=== PATIENT | female | born 1975 | race Caucasian/White ===

== ENCOUNTER 2017-02-08 14:53 | Observation (INO) | payer OTHER ==
[~2017-02-08] VITALS: Ht 170.2 cm; Wt 63.6 kg
[2017-02-08 15:08] VITALS: BP 95/75; PULSE 75; RESP 16; TEMP 98.3; O2SAT 99
[2017-02-08] MEDS ORDERED: GERD MED (15:15)
[2017-02-08 15:23] VITALS: O2SAT 100
[2017-02-08] MEDS ORDERED: SODIUM CHLORIDE 0.9% FLUSH 10 ML FLUSH IVF PRN (15:30)
--- NOTE | 2017-02-08 15:31 | PD ---
HPI Chief Complaint: Chest Pain Time Seen by Provider: 15:06 Travel History International Travel<30 days: No Contact w/Intl Traveler<30days: No Traveled to known affect area: No History of Present Illness HPI 41-year-old female presents with an episode 5 days ago chest pain that lasted a couple hours and went away but then recurred again today at about noon so she elected to come in after taking 4 baby aspirin. She states she also had a discomfort that went into her left arm. She states multiple males on her father 's side of the family including her father has had heart attacks. She states she has a history of SVT but denies any other cardiac history. 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 She denies other associated symptoms. Quality is achy. Location is chest. Severity is moderate. She denies specific modifying factors. She has had 2 episodes total over 5 days PFSH Past Medical History GERD: Yes Medical other: Yes (H/O SVT) Tetanus Vaccination: < 5 Years Influenza Vaccination: No ?: Not Past Surgical History Other Surgery: Yes (BREAST AUGMENTATION) Family History Family Myocardial Infarction: Yes Family Hypercholesterolemia: Yes Social History Alcohol Use: Yes (~2 X WEEKLY) Tobacco Use: No Substance Use: No Allergies-Medications (Allergen,Severity, Reaction): Coded Allergies: amoxicillin (Verified Allergy, Severe, Nausea/Vomiting, 02/08/17) clavulanic acid (Verified Allergy, Severe, Nausea/Vomiting, 02/08/17) levofloxacin (Verified Allergy, Severe, NIGHT TERRORS, 02/08/17) Reported Meds & Prescriptions Reported Meds & Active Scripts Active Reported [Gerd Med] Review of Systems Except as stated in HPI: all other systems reviewed are Neg Physical Exam Narrative GENERAL: Well-nourished, well-developed patient. Well-appearing SKIN: Warm and dry. HEAD: Normocephalic and atraumatic. EYES: No injection or drainage. ENT: No nasal drainage noted. NECK: Supple, trachea midline. CARDIOVASCULAR: Regular rate and rhythm RESPIRATORY: Breath sounds equal bilaterally. No accessory muscle use. GASTROINTESTINAL: Abdomen soft, non-tender, nondistended. EXTREMITIES: No edema. NEUROLOGICAL: Awake and alert. Motor and sensory grossly within normal limits. Normal speech. Data Data Last Documented VS Vital Signs Date Time Temp Pulse Resp B/P (MAP) Pulse Ox O2 Delivery O2 Flow Rate FiO2 02/08/17 15:23 100 Room Air 02/08/17 15:08 98.3 75 16 Orders Orders Electrocardiogram (02/08/17 15:19) Ckmb (Isoenzyme) Profile (02/08/17 15:19) Complete Blood Count With Diff (02/08/17 15:19) Comprehensive Metabolic Panel (02/08/17 15:19) Magnesium (Mg) (02/08/17 15:19) Prothrombin Time / Inr (Pt) (02/08/17 15:19) Act Partial Throm Time (Ptt) (02/08/17 15:19) Troponin I (02/08/17 15:19) Lipase (02/08/17 15:19) Chest, Single Ap (02/08/17 15:19) Ecg Monitoring (02/08/17 15:19) Bilateral Bp Monitoring (02/08/17 15:19) Iv Access Insert/Monitor (02/08/17 15:19) Oximetry (02/08/17 15:19) Oxygen Administration (02/08/17 15:19) Sodium Chloride 0.9% Flush (Ns Flush) (02/08/17 15:30) Admit Order (Ed Use Only) (02/08/17 17:15) Place In Observation (02/08/17 ) Vital Signs (Adult) Q4H (02/08/17 17:13) Activity Oob With Assistance (02/08/17 17:13) Camera Storage Clerk / Telemetry .CONTINUOUS (02/08/17 17:13) Diet Heart Healthy (02/08/17 Dinner) Sodium Chloride 0.9% Flush (Ns Flush) (02/08/17 17:15) Sodium Chloride 0.9% Flush (Ns Flush) (02/08/17 21:00) Acetaminophen (Tylenol) (02/08/17 17:15) Ondansetron Inj (Zofran Inj) (02/08/17 17:15) Troponin I (02/08/17 19:00) Troponin I (02/09/17 01:00) Electrocardiogram (02/08/17 19:00) Electrocardiogram (02/09/17 01:00) Scd Bilateral/Knee High MALLORY.BID (02/08/17 17:13) Naloxone Inj (Narcan Inj) (02/08/17 17:15) Docusate Sodium-Senna (Daly-Colace) (02/08/17 21:00) Magnesium Hydroxide Liq (Milk Of Magnesi (02/08/17 17:15) Sennosides (Senokot) (02/08/17 17:15) Bisacodyl Supp (Dulcolax Supp) (02/08/17 17:15) Lactulose Liq (Lactulose Liq) (02/08/17 17:15) Npo After Midnight W/ Po Meds (02/09/17 Breakfast) Labs Laboratory Tests Test 02/08/17 15:25 White Blood Count 8.2 TH/MM3 Red Blood Count 4.33 MIL/MM3 Hemoglobin 12.6 GM/DL Hematocrit 38.3 % Mean Corpuscular Volume 88.3 FL Mean Corpuscular Hemoglobin 29.1 PG Mean Corpuscular Hemoglobin Concent 32.9 % Red Cell Distribution Width 12.8 % Platelet Count 192 TH/MM3 Mean Platelet Volume 8.1 FL Neutrophils (%) (Auto) 68.8 % Lymphocytes (%) (Auto) 23.0 % Monocytes (%) (Auto) 6.8 % Eosinophils (%) (Auto) 0.8 % Basophils (%) (Auto) 0.6 % Neutrophils # (Auto) 5.6 TH/MM3 Lymphocytes # (Auto) 1.9 TH/MM3 Monocytes # (Auto) 0.6 TH/MM3 Eosinophils # (Auto) 0.1 TH/MM3 Basophils # (Auto) 0.0 TH/MM3 CBC Comment DIFF FINAL Differential Comment Prothrombin Time 10.7 SEC Prothromb Time International Ratio 1.0 RATIO Activated Partial Thromboplast Time 30.0 SEC Blood Urea Nitrogen 17 MG/DL Creatinine 0.97 MG/DL Random Glucose 98 MG/DL Total Protein 6.9 GM/DL Albumin 3.7 GM/DL Calcium Level 8.8 MG/DL Magnesium Level 2.3 MG/DL Alkaline Phosphatase 44 U/L Aspartate Amino Transf (AST/SGOT) 11 U/L Alanine Aminotransferase (ALT/SGPT) 13 U/L Total Bilirubin 1.0 MG/DL Sodium Level 140 MEQ/L Potassium Level 3.4 MEQ/L Chloride Level 106 MEQ/L Carbon Dioxide Level 26.7 MEQ/L Anion Gap 7 MEQ/L Estimat Glomerular Filtration Rate 64 ML/MIN Total Creatine Kinase 64 U/L Troponin I LESS THAN 0.02 NG/ML Lipase 117 U/L MDM Medical Decision Making Medical Screen Exam Complete: Yes Emergency Medical Condition: Yes Medical Record Reviewed: Yes (past history confirmed) Interpretation(s) EKG shows NSR, no ST elevation or depression, and no arrhythmias. No significant T-wave inversions. CBC & BMP Diagram 02/08/17 15:25 Total Protein 6.9, Albumin 3.7, Calcium Level 8.8, Magnesium Level 2.3, Alkaline Phosphatase 44 L, Aspartate Amino Transf (AST/SGOT) 11 L, Alanine Aminotransferase (ALT/SGPT) 13, Total Bilirubin 1.0 Last 24 hours Impressions Chest X-Ray 02/08/17 1519 Signed Impressions: Service Date/Time: Wednesday, February 08, 2017 15:48 - CONCLUSION: No acute disease. Siddhartha Tran Jr., MD Differential Diagnosis Gastritis, musculoskeletal, atypical cardiac Narrative Course Will check blood work, EKG, chest x-ray and reevaluate, currently pain-free and had aspirin ed workup no acute, patient agrees to [facility] observation after discussion with her Diagnosis Primary Impression: Chest pain Qualified Codes: R07.9 - Chest pain, unspecified Admitting Information Admitting Physician Requests: Observation Cici Espinoza MD Feb 08, 2017 15:31
[2017-02-08 15:32] LABS: AUTOMATED NEUTROPHIL # 5.6 TH/MM3 (1.8-7.7); BASOPHIL % 0.6 % (0.0-2.0); EOSINOPHIL # 0.1 TH/MM3 (0-0.4); EOSINOPHIL % 0.8 % (0.0-4.0); HEMATOCRIT 38.3 % (35.0-46.0); HEMO FLAGS DIFF FINAL; LYMPHOCYTE # 1.9 TH/MM3 (1.0-4.8); MEAN CELL VOLUME 88.3 FL (80.0-100.0); MEAN CORPUSCULAR HEMOGLOBIN 29.1 PG (27.0-34.0); MEAN CORPUSCULAR HGB CONC 32.9 % (32.0-36.0); MONO % 6.8 % (0.0-8.0); NEUT % 68.8 % (16.0-70.0); PLATELET COUNT 192 TH/MM3 (150-450); RED BLOOD COUNT 4.33 MIL/MM3 (4.00-5.30); RED CELL DISTRIBUTION WIDTH 12.8 % (11.6-17.2); WHITE BLOOD COUNT 8.2 TH/MM3 (4.0-11.0)
[2017-02-08 15:40] LABS: CHLORIDE 106 MEQ/L (98-107); POTASSIUM 3.4 MEQ/L (3.5-5.1); SODIUM (NA) 140 MEQ/L (136-145)
[2017-02-08 15:44] LABS: ANION GAP 7 MEQ/L (5-15); BICARBONATE 26.7 MEQ/L (21.0-32.0); BLOOD UREA NITROGEN 17 MG/DL (7-18); MAGNESIUM 2.3 MG/DL (1.5-2.5)
[2017-02-08 15:47] LABS: ALT (GPT) 13 U/L (10-53); AST (GOT) 11 U/L (15-37); GLOMERULAR FILTRATION RATE 64 ML/MIN (>89)
[2017-02-08 15:49] LABS: ALKALINE PHOSPHATASE 44 U/L (45-117)
[2017-02-08 15:51] LABS: PROTHROMBIN TIME - PATIENT 10.7 SEC (9.8-11.6)
[2017-02-08 16:21] LABS: CREATINE KINASE 64 U/L (26-192)
--- NOTE | 2017-02-08 16:26 | RADRPT ---
EXAM DATE/TIME: 02/08/2017 15:48 [facility] COMPARISON: No previous studies available for comparison. INDICATIONS : Left side chest pain. MEDICAL HISTORY : None. SURGICAL HISTORY : None. ENCOUNTER: Initial ACUITY: 2 days PAIN SCORE: 4/10 LOCATION: Left chest FINDINGS: A single view of the chest demonstrates the lungs to be symmetrically aerated without evidence of mas s, infiltrate or effusion. The cardiomediastinal contours are unremarkable. Osseous structures are intact. Scoliotic curvature. CONCLUSION: No acute disease. Siddhartha Tran Jr., MD on February 08, 2017 at 16:24 Board Certified Radiologist. This report was verified electronically.
[2017-02-08] MEDS ORDERED: MAGNESIUM HYDROXIDE SUSP 30 ML CUP PO PRN (17:15)
[2017-02-08] MEDS ORDERED: BISACODYL 10 MG SUPP RECTAL PRN (17:15)
[2017-02-08] MEDS ORDERED: SENNOSIDES 8.6 MG TAB PO PRN (17:15)
[2017-02-08] MEDS ORDERED: LACTULOSE SYRUP 20 GM/30 ML CUP PO PRN (17:15)
[2017-02-08] MEDS ORDERED: ACETAMINOPHEN 325 MG TAB PO PRN (17:15)
[2017-02-08] MEDS ORDERED: ONDANSETRON HCL 4 MG/2 ML VIAL IVP PRN (17:15)
[2017-02-08] MEDS ORDERED: SODIUM CHLORIDE 0.9% FLUSH 10 ML FLUSH IV FLUSH PRN (17:15)
[2017-02-08] MEDS ORDERED: NALOXONE HCL 0.4 MG/ML AMP IV PRN (17:15)
[2017-02-08 18:15] VITALS: BP 95/58; PULSE 76; RESP 14; TEMP 98.5; O2SAT 99
--- NOTE | 2017-02-08 19:27 | HHI.HP ---
HPI Service [facility] Primary Care Physician Coreen Carreno MD Admission Diagnosis chest pain Diagnoses: Chief Complaint: Chest pain. Travel History International Travel<30 Days: No Contact w/Intl Traveler <30 Da: No Traveled to Known Affected Are: No History of Present Illness Ms. De Los Santos is a pleasant 41 year old female with a history of SVT, GERD who presents to the ED on 02/08/2017 due to chest pain that occurred once 5 days ago and again on the day of admission. Today around noon while she was doing some household work, she experienced a dull achy pain over her upper left chest area with radiation to the left shoulder and left arm. She did not have any nausea, vomiting or diaphoresis. Her chest discomfort lasted about 2 hours. Rest helped a little but her pain persisted. She took four 81 mg Aspirin and decided to seek medical attention. She denies any cough, fever, chills. Denies any abdominal pain. No changes in bowel or bladder habits. Review of Systems Except as stated in HPI: all other systems reviewed are Neg Past Family Social History Past Medical History Supraventricular tachycardia GERD Past Surgical History Breast Augmentation. Reported Medications Zantac Allergies: Coded Allergies: amoxicillin (Verified Allergy, Severe, Nausea/Vomiting, 02/08/17) clavulanic acid (Verified Allergy, Severe, Nausea/Vomiting, 02/08/17) levofloxacin (Verified Allergy, Severe, NIGHT TERRORS, 02/08/17) Family History Dad - CT at 63. Mother - had stroke, TIA. Social History Patient denies using tobacco or illicit drugs. Drinks alcohol socially. Physical Exam Vital Signs Vital Signs Date Time Temp Pulse Resp B/P (MAP) Pulse Ox O2 Delivery O2 Flow Rate FiO2 02/08/17 18:15 98.5 76 14 95/58 (70) 99 Room Air 02/08/17 18:15 02/08/17 15:23 100 Room Air 02/08/17 15:23 100 Room Air 02/08/17 15:12 (82) 02/08/17 15:08 98.3 75 16 95/75 (82) 99 Room Air 02/08/17 15:08 Room Air Physical Exam GENERAL: This is a well-nourished, well-developed patient, in no apparent distress. SKIN: No rashes, ecchymoses or lesions. Warm and dry. HEAD: Atraumatic. Normocephalic. No temporal or scalp tenderness. EYES: Pupils equal round and reactive. No injection or drainage. ENT: Nose without bleeding, purulent drainage or septal hematoma. Airway patent. NECK: Trachea midline. No lymphadenopathy. Supple, nontender, no meningeal signs. CARDIOVASCULAR: Regular rate and rhythm without murmurs, gallops, or rubs. No JVD. RESPIRATORY: Clear to auscultation. Breath sounds equal bilaterally. No wheezes , rales, or rhonchi. GASTROINTESTINAL: Abdomen soft, non-tender, nondistended. No guarding. MUSCULOSKELETAL: Extremities without clubbing, cyanosis, or edema. NEUROLOGICAL: Awake and alert. Cranial nerves II through XII intact. No focal neurological deficits. Normal speech. Laboratory Laboratory Tests Test 02/08/17 15:25 White Blood Count 8.2 Red Blood Count 4.33 Hemoglobin 12.6 Hematocrit 38.3 Mean Corpuscular Volume 88.3 Mean Corpuscular Hemoglobin 29.1 Mean Corpuscular Hemoglobin Concent 32.9 Red Cell Distribution Width 12.8 Platelet Count 192 Mean Platelet Volume 8.1 Neutrophils (%) (Auto) 68.8 Lymphocytes (%) (Auto) 23.0 Monocytes (%) (Auto) 6.8 Eosinophils (%) (Auto) 0.8 Basophils (%) (Auto) 0.6 Neutrophils # (Auto) 5.6 Lymphocytes # (Auto) 1.9 Monocytes # (Auto) 0.6 Eosinophils # (Auto) 0.1 Basophils # (Auto) 0.0 CBC Comment DIFF FINAL Differential Comment Prothrombin Time 10.7 Prothromb Time International Ratio 1.0 Activated Partial Thromboplast Time 30.0 Blood Urea Nitrogen 17 Creatinine 0.97 Random Glucose 98 Total Protein 6.9 Albumin 3.7 Calcium Level 8.8 Magnesium Level 2.3 Alkaline Phosphatase 44 Aspartate Amino Transf (AST/SGOT) 11 Alanine Aminotransferase (ALT/SGPT) 13 Total Bilirubin 1.0 Sodium Level 140 Potassium Level 3.4 Chloride Level 106 Carbon Dioxide Level 26.7 Anion Gap 7 Estimat Glomerular Filtration Rate 64 Total Creatine Kinase 64 Troponin I LESS THAN 0.02 Lipase 117 Result Diagram: 02/08/17 1525 02/08/17 1525 Imaging Last Impressions Chest X-Ray 02/08/17 1519 Signed Impressions: Service Date/Time: Wednesday, February 08, 2017 15:48 - CONCLUSION: No acute disease. MD Miguel Olivo Jr. VTE Risk Assessment Capjett VTE Risk Assessment: No/Low Risk (score <= 1) Caprini Risk Assessment Model Point Value = 1 Point Value = 2 Point Value = 3 Point Value = 5 Age 41-60 Minor surgery BMI > 25 kg/m2 Swollen legs Varicose veins or History of unexplained or recurrent spontaneous Oral contraceptives or hormone replacement Sepsis (< 1 month) Serious lung disease, including pneumonia (< 1 month) Abnormal pulmonary function Acute myocardial infarction Congestive heart failure (< 1 month) History of inflammatory bowel disease Medical patient at bed rest Age 61-74 Arthroscopic surgery Major open surgery (> 45 min) Laparoscopic surgery (> 45 min) Malignancy Confined to bed (> 72 hours) Immobilizing plaster cast Central venous access Age >= 75 History of VTE Family history of VTE Factor V Leiden Prothrombin [id number] Lupus anticoagulant Anticardiolipin antibodies Elevated serum homocysteine Heparin-induced thrombocytopenia Other congenital or acquired thrombophilia Stroke (< 1 month) Elective arthroplasty Hip, pelvis, or leg fracture Acute spinal cord injury (< 1 month) Prophylaxis Regimen Total Risk Factor Score Risk Level Prophylaxis Regimen 0-1 Low Early ambulation 2 Moderate Order ONE of the following: *Sequential Compression Device (SCD) *Heparin 5000 units SQ BID 3-4 Higher Order ONE of the following medications: *Heparin 5000 units SQ TID *Enoxaparin/Lovenox 40 mg SQ daily (WT < 150 kg, CrCl > 30 mL/min) *Enoxaparin/Lovenox 30 mg SQ daily (WT < 150 kg, CrCl > 10-29 mL/min) *Enoxaparin/Lovenox 30 mg SQ BID (WT < 150 kg, CrCl > 30 mL/min) AND/OR *Sequential Compression Device (SCD) 5 or more Highest Order ONE of the following medications: *Heparin 5000 units SQ TID (Preferred with Epidurals) *Enoxaparin/Lovenox 40 mg SQ daily (WT < 150 kg, CrCl > 30 mL/min) *Enoxaparin/Lovenox 30 mg SQ daily (WT < 150 kg, CrCl > 10-29 mL/min) *Enoxaparin/Lovenox 30 mg SQ BID (WT < 150 kg, CrCl > 30 mL/min) AND *Sequential Compression Device (SCD) Assessment and Plan Problem List: (1) GERD (gastroesophageal reflux disease) ICD Code: K21.9 - Gastro-esophageal reflux disease without esophagitis (2) SVT (supraventricular tachycardia) ICD Code: I47.1 - Supraventricular tachycardia (3) Chest pain ICD Code: R07.9 - Chest pain, unspecified Status: Acute Assessment and Plan Ms. De Los Santos is a 41 year old female with a history of SVT, GERD who presents to the ED due to dull, achy chest discomfort that occurred today around noon. She experienced another similar episode about 5 days ago. Her chest discomfort was associated with radiation to the left shoulder and arm. No n/v, diaphoresis. - Chest pain - Concerning for cardiac origin. - Will check serial Troponins and EKGs. Will check lipid profile in the AM. - If troponins are unremarkable and patient does not have any further chest pain, consider exercise stress test in the AM. - NPO midnight and no caffeine after 7PM. - Continue aspirin 81mg Qday. - Supraventricular tachycardia - Currently in NSR. Patient has been evaluated by cardiology before. Not in [facility] area, however. - GERD - will continue H2 isabel. If symptoms persists, consider PPI. Full code. SCDs. Problem Qualifiers (1) Chest pain: Qualified Codes: R07.9 - Chest pain, unspecified Libby Martinez DO Feb 08, 2017 19:27
[2017-02-08] MEDS: SODIUM CHLORIDE 0.9% FLUSH 10 ML FLUSH IV FLUSH SCH (19:47)
[2017-02-08] MEDS: DOCUSATE SODIUM 50 MG/SENNA 8.6 MG TAB PO SCH (19:47)
[2017-02-08 20:00] VITALS: BP 101/78; PULSE 72; PULSE 85; RESP 16; TEMP 98; O2SAT 100
[2017-02-08] MEDS ORDERED: NITROGLYCERIN 2% OINT 1 GM PACKET TOPICAL PRN (23:15)
[2017-02-09] VITALS: BP 86/59; PULSE 75; RESP 14; TEMP 98.2; O2SAT 99
[2017-02-09 08:00] VITALS: BP 99/65; PULSE 81; RESP 18; TEMP 97.4; O2SAT 95
[2017-02-09] MEDS ORDERED: ASPIRIN EC 81 MG TABEC PO SCH (09:00)
[2017-02-09] MEDS ORDERED: FAMOTIDINE 20 MG TAB PO SCH (09:00)
--- NOTE | 2017-02-09 09:21 | HHI.DCPOC ---
Discharge Care Plan Diagnosis: (1) Chest pain Goals to Promote Your Health * To prevent worsening of your condition and complications * To maintain your health at the optimal level Directions to Meet Your Goals Take your medications as prescribed Follow your dietary instruction Follow activity as directed Keep your appointments as scheduled Take your immunizations and boosters as scheduled If your symptoms worsen call your PCP, if no PCP go to Urgent Care Center or Emergency Room Smoking is Dangerous to Your Health. Avoid second hand smoke Call the 24-hour hour crisis hotline for domestic abuse at Ajit Sosa Feb 09, 2017 09:21
[2017-02-09] MEDS: DOCUSATE SODIUM 50 MG/SENNA 8.6 MG TAB PO SCH (09:30)
[2017-02-09] MEDS: SODIUM CHLORIDE 0.9% FLUSH 10 ML FLUSH IV FLUSH SCH (09:30)
[2017-02-09 09:34] LABS: HDL CHOLESTEROL 53.7 MG/DL (40.0-60.0)
--- NOTE | 2017-02-09 10:13 | HHI.DS ---
cc: Coreen Carreno MD Discharge Summary Admission Date Feb 08, 2017 at 17:16 Discharge Date: Feb 09, 2017 Admitting Diagnosis chest pain (1) GERD (gastroesophageal reflux disease) ICD Code: K21.9 - Gastro-esophageal reflux disease without esophagitis (2) SVT (supraventricular tachycardia) ICD Code: I47.1 - Supraventricular tachycardia (3) Chest pain ICD Code: R07.9 - Chest pain, unspecified Status: Acute Procedures Exercise stress test: Negative for ischemic changes Brief History - From Admission Ms. De Los Santos is a pleasant 41 year old female with a history of SVT, GERD who presents to the ED on 02/08/2017 due to chest pain that occurred once 5 days ago and again on the day of admission. Today around noon while she was doing some household work, she experienced a dull achy pain over her upper left chest area with radiation to the left shoulder and left arm. She did not have any nausea, vomiting or diaphoresis. Her chest discomfort lasted about 2 hours. Rest helped a little but her pain persisted. She took four 81 mg Aspirin and decided to seek medical attention. She denies any cough, fever, chills. Denies any abdominal pain. No changes in bowel or bladder habits. CBC/BMP: 02/08/17 1525 02/08/17 1525 Significant Findings Laboratory Tests Test 02/08/17 15:25 02/08/17 20:00 02/09/17 01:00 02/09/17 06:43 Alkaline Phosphatase 44 U/L (45-117) Aspartate Amino Transf (AST/SGOT) 11 U/L (15-37) Potassium Level 3.4 MEQ/L (3.5-5.1) Estimat Glomerular Filtration Rate 64 ML/MIN (>89) Troponin I LESS THAN 0.02 NG/ML LESS THAN 0.02 NG/ML LESS THAN 0.02 NG/ML LDL Cholesterol 100 MG/DL (0-99) Imaging Last Impressions Chest X-Ray 02/08/17 1519 Signed Impressions: Service Date/Time: Wednesday, February 08, 2017 15:48 - CONCLUSION: No acute disease. Siddhartha Tran Jr., MD PE at Discharge GENERAL: This is a well-nourished, well-developed patient, in no apparent distress. CARDIOVASCULAR: Regular rate and rhythm without murmurs, gallops, or rubs. RESPIRATORY: Clear to auscultation. Breath sounds equal bilaterally. No wheezes , rales, or rhonchi. GASTROINTESTINAL: Abdomen soft, non-tender, nondistended. Normal active bowel sounds MUSCULOSKELETAL: Extremities without clubbing, cyanosis, or edema. NEURO: Alert & Oriented x4 to person, place, time, situation. Moves all ext x4 Pt update on day of discharge Patient seen today in follow-up for atypical chest pain which has resolved. No evidence of ischemic injury on exercise stress test. Discharge plans discussed with patient, lab results discussed with patient as well. Hospital Course Patient was seen and evaluated for atypical chest pain. The chest pain center. She did have stress test which was negative. Pt Condition on Discharge: Good Discharge Disposition: Discharge Home Discharge Time: > 30 minutes Discharge Instructions DIET: Follow Instructions for: As Tolerated, No Restrictions Activities you can perform: Regular-No Restrictions Follow up Referrals: PCP Follow-up - 1 Week Continued Medications: [Gerd Med] () Cyn Kenny MD Feb 09, 2017 10:12
--- NOTE | 2017-02-10 18:18 | TR ---
Date Performed: 02/09/2017 Time Performed: 08:41:29 DOCTOR: Karla Garcia DRUG LIST: CLINICAL HISTORY: REASON FOR TEST: REASON FOR ENDING: Completed Protocol OBSERVATION: Arrhythmia: None Chest Pain: None CONCLUSION: Patient tolerated YOANA protocol with Total Exercise Time=6:00 Maximum IJ=898 % Max HR Achieved=94.0% Maximum ES=980/85, Patient was asymptomatic during testing, Testing stopped seconda ry to goals acheived. During peak exercise, upsloping ST segments, no significant ST depressions, HR and BP appropriate response to exercise, Recovery period, HR and BP returned to baseline COMMENTS:
--- NOTE | 2017-02-10 18:20 | EKG ---
Date Performed: 02/09/2017 Time Performed: 00:56:40 PTAGE: 41 years EKG: Sinus rhythm INCOMPLETE RIGHT BUNDLE BRANCH BLOCK BORDERLINE ECG Since PREVIOUS TRACING , no significant change noted PREVIOUS TRACIN02/08/2017 19.49 DOCTOR: Karla Garcia Interpretating Date/Time 02/10/2017 18:19:47
--- NOTE | 2017-02-10 18:21 | EKG ---
Date Performed: 02/08/2017 Time Performed: 19:49:13 PTAGE: 41 years EKG: Sinus rhythm NORMAL ECG Since PREVIOUS TRACING , no significant change noted PREVIOUS TRACIN02/08/2017 15.06 DOCTOR: Karla Garcia Interpretating Date/Time 02/10/2017 18:20:35
--- NOTE | 2017-02-10 18:23 | EKG ---
Date Performed: 02/08/2017 Time Performed: 15:06:40 PTAGE: 41 years EKG: Sinus rhythm WITH SINUS ARRHYTHMIA INFERIOR MYOCARDIAL INFARCTION ABNORMAL ECG NO PREVIOUS TRACING DOCTOR: Karla Garcia Interpretating Date/Time 02/10/2017 18:22:20
== END 2017-02-09 09:52 | disposition home or self-care (01) ==
LOC: PHED 14:53 → PHEDA 17:16 → PH3B 18:20
PROVIDERS: ADMIT Hospitalist; ATTEND Hospitalist
DX: R07.89 Other chest pain (principal); I47.1 Supraventricular tachycardia; K21.9 Gastro-esophageal reflux disease without esophagitis; Z79.82 Long term (current) use of aspirin
CPT/HCPCS: 71010; 80053; 80061; 82550; 83690; 83735; 84484; 85025; 85610; 85730; 93005; 93017; 99285; G0378